=== PATIENT | male | born 1945 | race Caucasian/White ===

== ENCOUNTER 2017-07-29 09:33 | Emergency (ER) | payer MEDICARE, MEDICAID ==
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
[2017-07-29] MEDS ORDERED: Sodium Chloride 0.9% 10 ML Syringe FLUSH PRN (10:50)
[2017-07-29] MEDS ORDERED: Sodium Chloride 0.9% 1,000 ML IV ONE (10:58)
[2017-07-29 11:02] VITALS: BP 107/59
--- NOTE | 2017-07-29 11:26 | CR ---
Clinical history: 71-year-old male with abdominal pain and "constipation". Significant history colon cancer surgery (hepatic flexure) and prostate cancer surgery in the past. Interpretation: Flat plate and left lateral decubitus films of the abdomen abnormal. *Generalized dilatation of the large and small intestine with differential air-fluid levels small bow el suggesting mechanical bowel obstruction. Adhesions? Recurrent tumor? Stool concentrated in the rec jocelyn. No foreign body or free intraperitoneal air. Lung bases clear.
[2017-07-29 11:27] LABS: CHLORIDE,CL 102 mmol/L (101-111); SODIUM,NA 134 mmol/L (135-145)
[2017-07-29] MEDS ORDERED: Iopamidol 612 MG/ML 75 ML Bottle IVPUSH ONE (11:32)
[2017-07-29] MEDS ORDERED: Midazolam 1 MG/ML 2 ML SDV IVPUSH ONE (11:34)
--- NOTE | 2017-07-29 12:53 | CT ---
Clinical history: 71-year-old 130 pound male with abdominal pain and plain film evidence of "small [place] wel obstruction" who has significant past history of "colon cancer surgery" (hepatic flexure). Scan technique: Volume acquisition of data from the abdomen and pelvis obtained during and after intr avenous infusion nonionic Isovue contrast (no oral contrast) while patient was lying supine on the [employer] multi slice scanner [place], [place]. All data archived in the [employer] system for storage, reformatting and study. Interpretation: Abnormal. 1. Surgical clips right upper quadrant consistent with resection ascending right colon and ileo-colo anastomosis. 2. *Acute stool impaction rectosigmoid colon with associated evidence of apparent proximal obstructio n i.e. dilatation of the remaining colon proximally and small intestine. No ascites or free intraperi toneal air. 3. Large hiatus hernia incarcerated in the lower middle mediastinum (no gastric dilatation). 4. No abnormal abdominal or pelvic mass lesion and no mesenteric or retroperitoneal lymphadenopathy. 5. Gallbladder, liver, spleen, pancreas and adrenal glands unremarkable. Normal reniform size, axis a nd configuration. 6. Extensive atheromatous calcifications normal caliber aortoiliac vessels. No aneurysm or dissection . Arthritis right hip. 7. Lung bases clear. Indwelling urinary catheter.
--- NOTE | 2017-07-29 13:11 | CR ---
Clinical history: 71-year-old male with severe rectal stool impaction and signs of mechanical small b owel obstruction. Midline NG tube follows normal course esophagus and is curled with tip lying in the fundus of the sto mach, LUQ. Normal cardiac silhouette. No signs of alveolar edema, dependent effusion, lung mass, focal lobar inf iltrate or atelectasis. No pneumothorax. No free subdiaphragmatic air. CONCLUSION: Satisfactory NG tube placement.
== END 2017-07-29 14:00 ==
LOC: DL.ED 09:33
DX: K56.691 Other complete intestinal obstruction (principal); Z96.0 Presence of urogenital implants; Z85.038 Personal history of other malignant neoplasm of large intestine; Z85.46 Personal history of malignant neoplasm of prostate; Z86.711 Personal history of pulmonary embolism; Z87.891 Personal history of nicotine dependence; Z88.0 Allergy status to penicillin; Z88.1 Allergy status to other antibiotic agents
CPT/HCPCS: 36415; 43752; 71045; 74021; 74177; 80053; 83605; 85025; 96361; 96374; 99285; J2250; J7030; J7050; Q9967

== ENCOUNTER 2017-08-12 08:49 | Emergency (ER) | payer MEDICARE, MEDICAID ==
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
[2017-08-12] MEDS ORDERED: Ondansetron 4 MG/2 ML SDV IV ONE (09:40)
[2017-08-12 09:48] LABS: CHLORIDE,CL 94 mmol/L (101-111); SODIUM,NA 131 mmol/L (135-145)
--- NOTE | 2017-08-12 09:52 | CT ---
Clinical history: 71-year-old male history of colon cancer surgery (hepatic flexure) complaining of a bdominal pain was reported on [address] exam to have "stool impaction rectosigmoid colon with proximal obstruction; large hiatus hernia incarcerated lower middle mediastinum". Scan technique: Volume acquisition of data emergency unenhanced CT scan abdomen and pelvis obtained w ith patient lying supine on the [employer] multi slice scanner [place], [place]. All data archived in the [employer] system for storage, reformatting axial/sagittal/coronal planes and study. Interpretation: Abnormal. 1. Huge rectal stool impaction (no relief since recent CT exam 29 July 2017). 2. *Abnormal dilatation of the remaining colon, proximally, the small intestine and stomach with diff erential air-fluid levels throughout small bowel typical of mechanical obstruction. (Ileo-colo anasto mosis RUQ) No sign of ventral wall hernia, colostomy or ileostomy. 3. Indwelling catheter urinary bladder. No abdominal or pelvic mass lesion, retroperitoneal lymphaden opathy, inflammatory "dirty" peritoneal fat, ascites or free intraperitoneal air. 4. Normal gallbladder, unenhanced liver, spleen, pancreas, adrenal glands and kidneys. 5. Large fluid-filled hiatus hernia incarcerated in the lower middle mediastinum. 6. Densely calcified cast normal caliber aortoiliac vessels. No aneurysm or dissection.
[2017-08-12 10:40] VITALS: BP 129/83
== END 2017-08-12 11:00 ==
LOC: DL.ED 08:49
DX: K56.609 Unspecified intestinal obstruction, unspecified as to partial versus complete obstruction (principal); Z85.46 Personal history of malignant neoplasm of prostate; Z85.038 Personal history of other malignant neoplasm of large intestine; K21.9 Gastro-esophageal reflux disease without esophagitis; Z79.01 Long term (current) use of anticoagulants; Z87.891 Personal history of nicotine dependence; Z79.899 Other long term (current) drug therapy; Z88.0 Allergy status to penicillin; Z88.1 Allergy status to other antibiotic agents
CPT/HCPCS: 36415; 43752; 74176; 80053; 85025; 96374; 99285; J2405

== ENCOUNTER 2017-12-18 12:34 | Observation (INO) | payer MEDICARE, MEDICAID ==
[2017-12-18] MEDS: Sodium Chloride 0.9% 10 ML Syringe FLUSH PRN ×2 (13:34→19:44)
[2017-12-18 13:57] LABS: CHLORIDE,CL 94 mmol/L (101-111); SODIUM,NA 133 mmol/L (135-145)
[2017-12-18] MEDS ORDERED: Iopamidol 612 MG/ML 75 ML Bottle IVPUSH ONE (14:05)
[2017-12-18] MEDS ORDERED: Sodium Chloride 0.9% 1,000 ML IV ONE (18:47)
[2017-12-18] MEDS ORDERED: Acetaminophen 650 MG Supp RECTAL PRN (20:28)
[2017-12-18] MEDS ORDERED: Morphine 2 MG/ML Syringe IVPUSH PRN (20:28)
[2017-12-18] MEDS ORDERED: Ketorolac 30 MG/ML SDV IM PRN (20:28)
[2017-12-18] MEDS ORDERED: Sodium Chloride 0.9% 10 ML Syringe FLUSH PRN (20:28)
[2017-12-18] MEDS ORDERED: Ondansetron 4 MG/2 ML SDV IVPUSH PRN (20:28)
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
[2017-12-18] MEDS: Ciprofloxacin in D5W 400 MG in Premix Bag 1 BAG IV SCH ×2 (21:06)
[2017-12-18] MEDS: Benzocaine/Docusate Sodium 20-283 MG/5 ML Enema RECTAL SCH (21:55)
[2017-12-18] MEDS: Dextrose 5%-0.9% NaCl 1,000 ML IV SCH (22:45)
[2017-12-19 07:19] LABS: CHLORIDE,CL 96 mmol/L (101-111); SODIUM,NA 131 mmol/L (135-145)
[2017-12-19] MEDS: Ciprofloxacin in D5W 400 MG in Premix Bag 1 BAG IV SCH ×2 (08:47)
[2017-12-19] MEDS: Enoxaparin 100 MG/1 ML Syringe SUBCUT SCH (08:47)
[2017-12-19] MEDS: Benzocaine/Docusate Sodium 20-283 MG/5 ML Enema RECTAL SCH ×2 (09:37→21:02)
[2017-12-19] MEDS: Dextrose 5%-0.9% NaCl 1,000 ML IV SCH (10:14)
[2017-12-19] MEDS ORDERED: Polyethylene Glycol 3350 Powder 17 GM Packet PO ONE (10:50)
[2017-12-19] MEDS ORDERED: Magnesium Citrate Solution 296 ML Bottle PO ONE ×2 (10:50→11:30)
--- NOTE | 2017-12-19 11:06 | PCM.PN ---
- General Info Date of Service: 12/19/17 Admission Dx/Problem (Free Text): Admission Diagnosis/Problem Admission Diagnosis/Problem Intestinal obstruction Subjective Update: Patient admitted yesterday with n/v/abd pain. Being managed for intestinal obstruction. NG tube passed to decompress bowel. Doing well today. Will give trial of clear fluids, clamp NG tube. - Review of Systems General: Reports: No Symptoms HEENT: Reports: No Symptoms Pulmonary: Reports: No Symptoms Cardiovascular: Reports: No Symptoms Gastrointestinal: Reports: No Symptoms Genitourinary: Reports: No Symptoms Musculoskeletal: Reports: No Symptoms Skin: Reports: No Symptoms - Patient Data Vitals - Most Recent: Last Vital Signs Temp 36.9 C 12/19/17 07:56 Pulse 71 12/19/17 07:56 Resp 20 12/19/17 07:56 BP 114/73 12/19/17 07:56 Pulse Ox 94 L 12/19/17 07:56 Weight - Most Recent: 66.224 kg I&O - Last 24 Hours: Intake & Output 12/18/17 12/19/17 12/19/17 22:59 06:59 14:59 Intake Total 425 573 Output Total 350 550 Balance 75 23 Lab Results Last 24 Hours: Laboratory Results - last 24 hr 12/18/17 12/18/17 12/18/17 Range/Units 13:33 13:33 13:39 WBC 10.8 H (5.0-10.0) 10^3/uL RBC 4.12 L (4.6-6.2) 10^6/uL Hgb 13.4 L (14.0-18.0) g/dL Hct 39.8 L (40.0-54.0) % MCV 96.6 (80-100) fL MCH 32.5 (27.0-34.0) pg MCHC 33.7 (33.0-35.0) g/dL Plt Count 344 D (150-450) 10^3/uL Neut % (Auto) 66.9 (42.2-75.2) % Lymph % (Auto) 21.0 (20.5-50.1) % [place] % (Auto) 10.8 H (2-8) % Eos % (Auto) 1.0 (1.0-3.0) % Baso % (Auto) 0.3 (0.0-1.0) % Sodium 133 L (135-145) mmol/L Potassium 4.1 (3.6-5.0) mmol/L Chloride 94 L (101-111) mmol/L Carbon Dioxide 33.0 H (21.0-31.0) mmol/L Anion Gap 10.1 BUN 19 H (7-18) mg/dL Creatinine 0.9 (0.6-1.3) mg/dL Est Cr Clr Drug Dosing 68.47 mL/min Estimated GFR (MDRD) > 60 BUN/Creatinine Ratio 21.11 Glucose 115 H (74-105) mg/dL Calcium 9.6 (8.4-10.2) mg/dl Phosphorus (2.5-4.6) mg/dL Magnesium (1.8-2.5) mg/dL Total Bilirubin 0.7 (0.2-1.0) mg/dL Direct Bilirubin (0.0-0.2) mg/dL Indirect Bilirubin AST 33 (10-42) IU/L ALT 23 (10-60) IU/L Alkaline Phosphatase 123 H (42-121) IU/L Total Protein 7.4 (6.7-8.2) g/dl Albumin 3.7 (3.2-5.5) g/dl Globulin 3.7 Albumin/Globulin Ratio 1.00 Urine Color Yellow (YELLOW) Urine Appearance Turbid (CLEAR) Urine pH 7.0 (5.0-9.0) Ur Specific [place] 1.020 (1.005-1.030) Urine Protein 100 H (NEGATIVE) Urine Glucose (UA) Negative (NEGATIVE) Urine Ketones Negative (NEGATIVE) Urine Occult Blood Moderate H (NEGATIVE) Urine Nitrite Positive H (NEGATIVE) Urine Bilirubin Small H (NEGATIVE) Urine Urobilinogen 1.0 (0.2-1.0) mg/dL Ur Leukocyte Esterase Large H (NEGATIVE) Urine RBC 30-40 H /HPF Urine WBC 50-75 H (0-5/HPF) /HPF Ur Epithelial Cells Rare /HPF Triple Phos Crystals Moderate H /HPF Amorphous Sediment Few (0/HPF) /HPF Urine Bacteria Many H (0-FEW/HPF) /HPF Urine Other 12/19/17 12/19/17 Range/Units 06:25 06:25 WBC 9.0 (5.0-10.0) 10^3/uL RBC 3.69 L (4.6-6.2) 10^6/uL Hgb 12.2 L (14.0-18.0) g/dL Hct 35.9 L (40.0-54.0) % MCV 97.3 (80-100) fL MCH 33.1 (27.0-34.0) pg MCHC 34.0 (33.0-35.0) g/dL Plt Count 344 (150-450) 10^3/uL Neut % (Auto) 59.2 (42.2-75.2) % Lymph % (Auto) 26.0 (20.5-50.1) % [place] % (Auto) 11.5 H (2-8) % Eos % (Auto) 3.0 (1.0-3.0) % Baso % (Auto) 0.3 (0.0-1.0) % Sodium 131 L (135-145) mmol/L Potassium 3.1 L (3.6-5.0) mmol/L Chloride 96 L (101-111) mmol/L Carbon Dioxide 29.0 (21.0-31.0) mmol/L Anion Gap 9.1 BUN 17 (7-18) mg/dL Creatinine 0.6 (0.6-1.3) mg/dL Est Cr Clr Drug Dosing 102.71 mL/min Estimated GFR (MDRD) > 60 BUN/Creatinine Ratio Glucose 122 H (74-105) mg/dL Calcium 8.5 (8.4-10.2) mg/dl Phosphorus 2.4 L (2.5-4.6) mg/dL Magnesium 2.0 (1.8-2.5) mg/dL Total Bilirubin 0.5 (0.2-1.0) mg/dL Direct Bilirubin 0.1 (0.0-0.2) mg/dL Indirect Bilirubin 0.4 AST 22 (10-42) IU/L ALT 17 (10-60) IU/L Alkaline Phosphatase 102 (42-121) IU/L Total Protein 6.1 L (6.7-8.2) g/dl Albumin 3.1 L (3.2-5.5) g/dl Globulin 3.0 Albumin/Globulin Ratio 1.03 Urine Color (YELLOW) Urine Appearance (CLEAR) Urine pH (5.0-9.0) Ur Specific [place] (1.005-1.030) Urine Protein (NEGATIVE) Urine Glucose (UA) (NEGATIVE) Urine Ketones (NEGATIVE) Urine Occult Blood (NEGATIVE) Urine Nitrite (NEGATIVE) Urine Bilirubin (NEGATIVE) Urine Urobilinogen (0.2-1.0) mg/dL Ur Leukocyte Esterase (NEGATIVE) Urine RBC /HPF Urine WBC (0-5/HPF) /HPF Ur Epithelial Cells /HPF Triple Phos Crystals /HPF Amorphous Sediment (0/HPF) /HPF Urine Bacteria (0-FEW/HPF) /HPF Urine Other Med Orders - Current: Current Medications Acetaminophen (Tylenol) 650 mg RECTAL Q4H PRN PRN Reason: Pain (mild 1-3) Docusate Sodium/Benzocaine (Enemeez Plus Mini Enema) 1 each RECTAL BID [facility] Stop: 12/19/17 21:01 Last Admin: 12/19/17 09:37 Dose: 1 each Enoxaparin Sodium (Lovenox) 100 mg SUBCUT DAILY [facility] Last Admin: 12/19/17 08:47 Dose: 100 mg Dextrose/Sodium Chloride (Dextrose 5%-Normal Saline) 1,000 mls @ 100 mls/hr IV ASDIRECTED [facility] Last Admin: 12/19/17 10:14 Dose: 100 mls/hr Ciprofloxacin/Dextrose 400 mg/ (Premix) 200 mls @ 200 mls/hr IV Q12HR [facility] Stop: 12/23/17 21:01 Last Admin: 12/19/17 08:47 Dose: 200 mls/hr Ketorolac Tromethamine (Toradol) 30 mg IM Q6H PRN PRN Reason: Pain (moderate 4-6) Morphine Sulfate (Morphine) 2 mg IVPUSH Q2H PRN PRN Reason: Pain (severe 7-10) Ondansetron HCl (Zofran) 4 mg IVPUSH Q4H PRN PRN Reason: Nausea/Vomiting Sodium Chloride (Saline Flush) 10 ml FLUSH ASDIRECTED PRN PRN Reason: Keep Vein Open Last Admin: 12/18/17 19:44 Dose: 10 ml Sodium Chloride (Saline Flush) 10 ml FLUSH ASDIRECTED PRN PRN Reason: Keep Vein Open Discontinued Medications Sodium Chloride (Normal Saline) 1,000 mls @ 100 mls/hr IV .BOLUS ONE Stop: 12/19/17 04:46 Last Admin: 12/18/17 19:44 Dose: 100 mls/hr Iopamidol (Isovue-300 (61%)) 75 ml IVPUSH ONETIME ONE Stop: 12/18/17 14:06 Last Admin: 12/18/17 14:31 Dose: 75 ml Magnesium Citrate (Citrate Of Magnesia) 300 ml PO ONETIME ONE Stop: 12/19/17 10:51 Polyethylene Glycol (Miralax) 17 gm PO ONETIME ONE Stop: 12/19/17 10:51 - Exam General: Alert, Oriented HEENT: Pupils Equal Neck: Supple Lungs: Clear to Auscultation Cardiovascular: Regular Rate, Regular Rhythm GI/Abdominal Exam: Normal Bowel Sounds - Problem List Review Problem List Initiated/Reviewed/Updated: Yes - My Orders Last 24 Hours: My Active Orders 12/18/17 13:39 CULTURE URINE [RM] Stat 12/18/17 20:28 Patient Status [ADT] Routine Ambulate [RC] ASDIRECTED Height and Weight [RC] 0600 Oxygen Therapy [RC] PRN Up With Assistance [RC] ASDIRECTED Up to Chair [RC] ASDIRECTED Urinary Catheter Assessment [RC] QSHIFT VTE/DVT Education [RC] PER UNIT ROUTINE Vital Signs [RC] 04,08,12,16,20,00 Acetaminophen [Tylenol] 650 mg RECTAL Q4H PRN Ketorolac [Toradol] 30 mg IM Q6H PRN Morphine 2 mg IVPUSH Q2H PRN Ondansetron [Zofran] 4 mg IVPUSH Q4H PRN Sodium Chloride 0.9% [Saline Flush] 10 ml FLUSH ASDIRECTED PRN Blood Culture x2 Reflex Set [OM.PC] Stat Saline Lock Insert [OM.PC] Routine Resuscitation Status Routine 12/18/17 20:30 Intake and Output [RC] QSHIFT 12/18/17 20:40 OT Evaluation and Treatment [CONS] Routine PT Evaluation and Treatment [CONS] Routine 12/18/17 20:43 CULTURE BLOOD [BC] Stat CULTURE BLOOD [BC] Stat 12/18/17 20:45 Dextrose 5%-0.9% NaCl [Dextrose 5%-Normal Saline] 1,000 ml IV ASDIRECTED 12/18/17 21:00 Benzocaine/Docusate Sodium [Enemeez Plus Mini Enema] 1 each RECTAL BID Ciprofloxacin in D5W [Cipro in D5W 400 MG/200 ML] 400 mg Premix Bag 1 bag IV Q12HR 12/18/17 Dinner Nothing per Oral Now Diet [DIET] 12/19/17 09:00 Enoxaparin [Lovenox] 100 mg SUBCUT DAILY 12/19/17 10:12 Communication Order [RC] 1400 12/19/17 10:49 Enema [RC] ASDIRECTED 12/19/17 Lunch Clear Liquid Diet [DIET] - Plan Plan:: The patient is a 72-year-old male with a past medical history of metastatic colon cancer involving the liver, stage III a prostate cancer, DVT on anticoagulation, who presents with constipation, abdominal cramps, nausea and vomiting. #Intestinal obstruction CT scan shows dilated loops of bowel, air-fluid levels, and stool impaction in the rectosigmoid. Nothing by mouth Clamp NG tube, trial of clear liquids. Trial of enema, miralax, mag citrate IV fluids: 5% dextrose + normal saline at 100 mL an hour #Urinary tract infection possible, patient with chronic Valdez Check urine cultures, blood culture IV Ciprofloxacin 400 mg every 12 hours #History of DVT Continue therapeutic Lovenox
[2017-12-19] MEDS: Ciprofloxacin 500 MG Tab PO SCH (21:02)
[2017-12-20 07:53] VITALS: BP 111/68
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
[2017-12-20] MEDS: Enoxaparin 100 MG/1 ML Syringe SUBCUT SCH (08:41)
[2017-12-20] MEDS: Ciprofloxacin 500 MG Tab PO SCH (08:41)
--- NOTE | 2017-12-20 10:18 | PCM.DCSUM1 ---
Discharge Summary - Hospital Course Free Text/Narrative:: 72-year-old male with a past medical history of metastatic colon cancer status post hemicolectomy, prostate cancer with chronic Valdez who was admitted with intestinal obstruction secondary to a fecal impaction. NG tube was placed, he received several enemas and bowel movements. Abdominal pain, nausea and vomiting improved, NG tube was removed, he tolerated oral meals was okay for discharge today. 3 days of antibiotics were given for possible UTI. Valdez catheter was changed. He will follow-up with Dr. Solares in the oncology clinic and with his primary care doctor. - Discharge Data Discharge Date: 12/20/17 Discharge Disposition: Home, Self-Care 01 Condition: Good - Patient Instructions Diet: Regular Diet as Tolerated Activity: As Tolerated Driving: May Drive Today Showering/Bathing: May Shower - Discharge Plan Home Medications: Home Meds Calcium Carbonate/Vitamin D3 [Calcium 600-Vit D3 400 Tablet] 1 each PO BID 05/15 [History] Capecitabine 1,000 mg PO BID 07/29/17 [History] Acetaminophen [Tylenol] 2 tab PO ASDIRECTED PRN 08/12/17 [History] Enoxaparin [Lovenox] 1 ml SQ DAILY 08/12/17 [History] Loperamide [Imodium] 1 tab PO ASDIRECTED PRN 08/12/17 [History] Magnesium Hydroxide [Milk of Magnesia] 30 ml PO DAILY PRN 08/12/17 [History] Ondansetron [Zofran] 1 tab PO ASDIRECTED PRN 08/12/17 [History] Prochlorperazine Maleate [Compazine] 1 tab PO ASDIRECTED PRN 08/12/17 [History] Sennosides/Docusate Sodium [Senna-S Tablet] 2 tab PO BID 08/12/17 [History] Sodium Phosphate,[place]-Dibasic [Enema Ready To Use] 133 ml RECTAL DAILY PRN 08/12 [History] Patient Handouts: Constipation, Adult, [id number], Fiber Content in Foods Forms: ED Department Discharge - General Info Admission Dx/Problem (Free Text: Admission Diagnosis/Problem Admission Diagnosis/Problem Intestinal obstruction Subjective Update: Patient admitted yesterday with n/v/abd pain. Being managed for intestinal obstruction. NG tube removed yesterday Doing well today. - Review of Systems General: Reports: No Symptoms HEENT: Reports: No Symptoms Pulmonary: Reports: No Symptoms Cardiovascular: Reports: No Symptoms Gastrointestinal: Reports: No Symptoms Genitourinary: Reports: No Symptoms - Patient Data Vitals - Most Recent: Last Vital Signs Temp 37.1 C 12/20/17 07:53 Pulse 71 12/20/17 07:53 Resp 20 12/20/17 07:53 BP 111/68 12/20/17 07:53 Pulse Ox 95 12/20/17 07:53 Weight - Most Recent: 66.224 kg I&O - Last 24 hours: Intake & Output 12/19/17 12/20/17 12/20/17 22:59 06:59 14:59 Intake Total 240 Output Total 300 Balance -300 240 SERGE Results - Last 24 hrs: Microbiology 12/18/17 20:43 Aerobic Blood Culture - Preliminary Blood - Venous - Lab Draw NO GROWTH AFTER 1 DAY Anaerobic Blood Culture - Preliminary NO GROWTH AFTER 1 DAY 12/18/17 20:43 Aerobic Blood Culture - Preliminary Blood - Venous NO GROWTH AFTER 1 DAY Anaerobic Blood Culture - Preliminary NO GROWTH AFTER 1 DAY Med Orders - Current: Current Medications Acetaminophen (Tylenol) 650 mg RECTAL Q4H PRN PRN Reason: Pain (mild 1-3) Ciprofloxacin (Ciprofloxacin Hcl) 500 mg PO BID [facility] Last Admin: 12/20/17 08:41 Dose: 500 mg Enoxaparin Sodium (Lovenox) 100 mg SUBCUT DAILY [facility] Last Admin: 12/20/17 08:41 Dose: 100 mg Ketorolac Tromethamine (Toradol) 30 mg IM Q6H PRN PRN Reason: Pain (moderate 4-6) Sodium Chloride (Saline Flush) 10 ml FLUSH ASDIRECTED PRN PRN Reason: Keep Vein Open Discontinued Medications Docusate Sodium/Benzocaine (Enemeez Plus Mini Enema) 1 each RECTAL BID [facility] Stop: 12/19/17 21:01 Last Admin: 12/19/17 21:02 Dose: 1 each Sodium Chloride (Normal Saline) 1,000 mls @ 100 mls/hr IV .BOLUS ONE Stop: 12/19/17 04:46 Last Admin: 12/18/17 19:44 Dose: 100 mls/hr Dextrose/Sodium Chloride (Dextrose 5%-Normal Saline) 1,000 mls @ 100 mls/hr IV ASDIRECTED [facility] Last Admin: 12/19/17 10:14 Dose: 100 mls/hr Ciprofloxacin/Dextrose 400 mg/ (Premix) 200 mls @ 200 mls/hr IV Q12HR [facility] Stop: 12/23/17 21:01 Last Admin: 12/19/17 08:47 Dose: 200 mls/hr Iopamidol (Isovue-300 (61%)) 75 ml IVPUSH ONETIME ONE Stop: 12/18/17 14:06 Last Admin: 12/18/17 14:31 Dose: 75 ml Magnesium Citrate (Citrate Of Magnesia) 300 ml PO ONETIME ONE Stop: 12/19/17 10:51 Last Admin: 12/19/17 11:58 Dose: Not Given Magnesium Citrate (Citrate Of Magnesia) 296 ml PO ONETIME ONE Stop: 12/19/17 11:31 Last Admin: 12/19/17 11:40 Dose: 296 ml Morphine Sulfate (Morphine) 2 mg IVPUSH Q2H PRN PRN Reason: Pain (severe 7-10) Ondansetron HCl (Zofran) 4 mg IVPUSH Q4H PRN PRN Reason: Nausea/Vomiting Last Admin: 12/19/17 15:48 Dose: 4 mg Polyethylene Glycol (Miralax) 17 gm PO ONETIME ONE Stop: 12/19/17 10:51 Last Admin: 12/19/17 12:01 Dose: 17 gm Sodium Chloride (Saline Flush) 10 ml FLUSH ASDIRECTED PRN PRN Reason: Keep Vein Open Last Admin: 12/18/17 19:44 Dose: 10 ml - Exam General: Reports: Alert, Oriented HEENT: Reports: Pupils Equal, Pupils Reactive Lungs: Reports: Clear to Auscultation Cardiovascular: Reports: Regular Rate, Regular Rhythm GI/Abdominal Exam: Normal Bowel Sounds, Soft, No Distention
== END 2017-12-20 11:43 | disposition home or self-care (01) ==
LOC: DL.ED 12:34 → DL.MS 19:31 → UNDOADMOB 19:31 → DL.MS 20:28
PROVIDERS: ADMIT Hospitalist; ATTEND Hospitalist
DX: K56.41 Fecal impaction (principal); C78.7 Secondary malignant neoplasm of liver and intrahepatic bile duct; K21.9 Gastro-esophageal reflux disease without esophagitis; N40.1 Benign prostatic hyperplasia with lower urinary tract symptoms; R33.8 Other retention of urine; Z86.73 Personal history of transient ischemic attack (TIA), and cerebral infarction without residual deficits; Z90.49 Acquired absence of other specified parts of digestive tract; Z85.038 Personal history of other malignant neoplasm of large intestine; Z85.46 Personal history of malignant neoplasm of prostate; Z79.899 Other long term (current) drug therapy; Z79.01 Long term (current) use of anticoagulants; Z88.1 Allergy status to other antibiotic agents; Z88.0 Allergy status to penicillin; Z86.711 Personal history of pulmonary embolism; Z86.718 Personal history of other venous thrombosis and embolism
CPT/HCPCS: 36415; 74177; 80048; 80053; 80076; 81001; 83735; 84100; 85025; 87040; 87086; 87186; 96361; 96365; 96366; 96372; 96375; 99284; A9270; G0378; J0744; J1650; J2405; J7030; J7042; J7050; Q9967

== ENCOUNTER 2017-12-21 03:41 | Emergency (ER) | payer MEDICARE, MEDICAID ==
[2017-12-21 03:46] VITALS: BP 138/72
[2017-12-21] MEDS ORDERED: Sodium Chloride 0.9% 1,000 ML IV ONE (03:50)
[2017-12-21] MEDS ORDERED: Iopamidol 612 MG/ML 75 ML Bottle IVPUSH ONE (03:50)
[2017-12-21 04:32] LABS: CHLORIDE,CL 95 mmol/L (101-111); SODIUM,NA 134 mmol/L (135-145)
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
== END 2017-12-21 06:09 ==
LOC: DL.ED 03:41
DX: K56.609 Unspecified intestinal obstruction, unspecified as to partial versus complete obstruction (principal); Z85.46 Personal history of malignant neoplasm of prostate; Z85.038 Personal history of other malignant neoplasm of large intestine; Z88.0 Allergy status to penicillin; Z88.1 Allergy status to other antibiotic agents; Z79.899 Other long term (current) drug therapy; Z79.01 Long term (current) use of anticoagulants
CPT/HCPCS: 36415; 71045; 74177; 80053; 81001; 82150; 82272; 83605; 83690; 84484; 85025; 87040; 96360; 96361; 99284; J7030; Q9967; 99285

== ENCOUNTER 2017-12-24 17:26 | Observation (INO) | payer MEDICARE, MEDICAID ==
[2017-12-24] MEDS ORDERED: Sodium Chloride 0.9% 10 ML Syringe FLUSH PRN (17:52)
[2017-12-24] MEDS ORDERED: Sodium Chloride 0.9% 1,000 ML IV SCH (18:00)
[2017-12-24 18:38] LABS: CHLORIDE,CL 102 mmol/L (101-111); SODIUM,NA 132 mmol/L (135-145)
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
[2017-12-24] MEDS ORDERED: Levofloxacin/Dextrose 5%-Water 500 MG in Premix Bag 1 BAG IV ONE (19:05)
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
[2017-12-24] MEDS ORDERED: SODIUM PHOSPHATE MONO DIBASIC RECTAL PRN (20:36)
[2017-12-24] MEDS ORDERED: Magnesium Hydroxide 400 MG/5 ML Susp 30 ML Cup PO PRN (20:36)
[2017-12-24] MEDS ORDERED: Prochlorperazine 5 MG Tab PO PRN (20:36)
[2017-12-24] MEDS ORDERED: Ondansetron 4 MG Tab.DIS PO PRN (20:36)
[2017-12-24] MEDS ORDERED: Acetaminophen 325 MG Tab PO PRN (20:36)
[2017-12-24] MEDS ORDERED: [UNRECOGNIZED DRUG - OTHER] RECTAL PRN (20:36)
[2017-12-24] MEDS: Calcium Carbonate/Vitamin D3 1250 MG-200 Unit Tab PO SCH (21:33)
[2017-12-25 06:54] LABS: CHLORIDE,CL 104 mmol/L (101-111); SODIUM,NA 131 mmol/L (135-145)
[2017-12-25] MEDS: Calcium Carbonate/Vitamin D3 1250 MG-200 Unit Tab PO SCH ×2 (09:38→21:48)
[2017-12-25] MEDS: XELODA 500 MG PO SCH ×2 (09:39→21:48)
[2017-12-25] MEDS: Enoxaparin 100 MG/1 ML Syringe SUBCUT SCH (09:40)
--- NOTE | 2017-12-25 10:21 | PCM.PN ---
- General Info Date of Service: 12/25/17 Admission Dx/Problem (Free Text): Ambulatory dysfunction Subjective Update: The patient is a 72-year-old male with a past medical history of metastatic colon cancer involving the liver, stage III a prostate cancer, DVT on anticoagulation, who presents with ambulatory dysfunction. He was recently admitted at [facility] with intestinal obstruction and upper GI bleed from esophagitis. Prior to discharge, he was eventually treated by physical therapy and TCU admission was recommended. Patient refused TCU admission and was discharged home with home health care, to be assisted by his . However his sustained a fracture and is unable to care for him. He has severe ambulatory difficulty and needs help with ADLs and IADLs. Determine inability to feed himself at home, take care of himself, toileting needs, he presents to ED. He has no other complaints today. There is no fever, no abdominal pain, no chest pain, no shortness of breath. - Review of Systems General: Reports: No Symptoms HEENT: Reports: No Symptoms Pulmonary: Reports: No Symptoms Cardiovascular: Reports: No Symptoms Gastrointestinal: Reports: No Symptoms Genitourinary: Reports: No Symptoms Musculoskeletal: Reports: No Symptoms Skin: Reports: No Symptoms - Patient Data Vitals - Most Recent: Last Vital Signs Temp 36.8 C 12/25/17 07:18 Pulse 74 12/25/17 07:18 Resp 20 12/25/17 07:18 BP 127/80 12/25/17 07:18 Pulse Ox 96 12/25/17 07:18 Weight - Most Recent: 60.963 kg I&O - Last 24 Hours: Intake & Output 12/24/17 12/25/17 12/25/17 22:59 06:59 14:59 Intake Total 100 1064 Output Total 875 Balance 100 189 Lab Results Last 24 Hours: Laboratory Results - last 24 hr 12/24/17 12/24/17 12/24/17 Range/Units 18:15 18:15 18:31 WBC 8.0 (5.0-10.0) 10^3/uL RBC 3.74 L (4.6-6.2) 10^6/uL Hgb 12.5 L (14.0-18.0) g/dL Hct 36.1 L (40.0-54.0) % MCV 96.5 (80-100) fL MCH 33.4 (27.0-34.0) pg MCHC 34.6 (33.0-35.0) g/dL Plt Count 393 (150-450) 10^3/uL Neut % (Auto) 60.2 (42.2-75.2) % Lymph % (Auto) 22.3 (20.5-50.1) % [place] % (Auto) 13.6 H (2-8) % Eos % (Auto) 3.3 H (1.0-3.0) % Baso % (Auto) 0.6 (0.0-1.0) % Sodium 132 L (135-145) mmol/L Potassium 3.9 (3.6-5.0) mmol/L Chloride 102 (101-111) mmol/L Carbon Dioxide 20.0 L D (21.0-31.0) mmol/L Anion Gap 13.9 BUN 10 (7-18) mg/dL Creatinine 0.7 (0.6-1.3) mg/dL Est Cr Clr Drug Dosing 85.62 mL/min Estimated GFR (MDRD) > 60 BUN/Creatinine Ratio 14.28 Glucose 93 (74-105) mg/dL Calcium 8.3 L (8.4-10.2) mg/dl Magnesium 2.3 (1.8-2.5) mg/dL Total Bilirubin 1.0 (0.2-1.0) mg/dL AST 34 (10-42) IU/L ALT 27 (10-60) IU/L Alkaline Phosphatase 146 H (42-121) IU/L Total Protein 6.4 L (6.7-8.2) g/dl Albumin 3.1 L (3.2-5.5) g/dl Globulin 3.3 Albumin/Globulin Ratio 0.94 Urine Color Yellow (YELLOW) Urine Appearance Cloudy (CLEAR) Urine pH 6.0 (5.0-9.0) Ur Specific [place] 1.020 (1.005-1.030) Urine Protein 30 H (NEGATIVE) Urine Glucose (UA) Negative (NEGATIVE) Urine Ketones >=160 H (NEGATIVE) Urine Occult Blood Moderate H (NEGATIVE) Urine Nitrite Positive H (NEGATIVE) Urine Bilirubin Moderate H (NEGATIVE) Urine Urobilinogen 1.0 (0.2-1.0) mg/dL Ur Leukocyte Esterase Moderate H (NEGATIVE) Urine RBC 5-10 H /HPF Urine WBC Packed H (0-5/HPF) /HPF Ur Epithelial Cells Occasional /HPF Urine Bacteria Many H (0-FEW/HPF) /HPF 12/25/17 12/25/17 Range/Units 06:00 06:00 WBC 7.7 (5.0-10.0) 10^3/uL RBC 3.58 L (4.6-6.2) 10^6/uL Hgb 11.7 L (14.0-18.0) g/dL Hct 34.6 L (40.0-54.0) % MCV 96.6 (80-100) fL MCH 32.7 (27.0-34.0) pg MCHC 33.8 (33.0-35.0) g/dL Plt Count 410 (150-450) 10^3/uL Neut % (Auto) 56.4 (42.2-75.2) % Lymph % (Auto) 25.7 (20.5-50.1) % [place] % (Auto) 13.2 H (2-8) % Eos % (Auto) 4.1 H (1.0-3.0) % Baso % (Auto) 0.6 (0.0-1.0) % Sodium 131 L (135-145) mmol/L Potassium 4.0 (3.6-5.0) mmol/L Chloride 104 (101-111) mmol/L Carbon Dioxide 20.0 L (21.0-31.0) mmol/L Anion Gap 11.0 BUN 10 (7-18) mg/dL Creatinine 0.5 L (0.6-1.3) mg/dL Est Cr Clr Drug Dosing 113.46 mL/min Estimated GFR (MDRD) > 60 BUN/Creatinine Ratio Glucose 75 (74-105) mg/dL Calcium 8.1 L (8.4-10.2) mg/dl Magnesium (1.8-2.5) mg/dL Total Bilirubin (0.2-1.0) mg/dL AST (10-42) IU/L ALT (10-60) IU/L Alkaline Phosphatase (42-121) IU/L Total Protein (6.7-8.2) g/dl Albumin (3.2-5.5) g/dl Globulin Albumin/Globulin Ratio Urine Color (YELLOW) Urine Appearance (CLEAR) Urine pH (5.0-9.0) Ur Specific [place] (1.005-1.030) Urine Protein (NEGATIVE) Urine Glucose (UA) (NEGATIVE) Urine Ketones (NEGATIVE) Urine Occult Blood (NEGATIVE) Urine Nitrite (NEGATIVE) Urine Bilirubin (NEGATIVE) Urine Urobilinogen (0.2-1.0) mg/dL Ur Leukocyte Esterase (NEGATIVE) Urine RBC /HPF Urine WBC (0-5/HPF) /HPF Ur Epithelial Cells /HPF Urine Bacteria (0-FEW/HPF) /HPF Med Orders - Current: Current Medications Acetaminophen (Tylenol) 650 mg PO Q4H PRN PRN Reason: Pain Calcium Carbonate (Calcium Carbonate/Vitamin D 1250 Mg-200 Unit) 1 tab PO BID [facility] Last Admin: 12/25/17 09:38 Dose: 1 tab Enoxaparin Sodium (Lovenox) 100 mg SUBCUT DAILY [facility] Last Admin: 12/25/17 09:40 Dose: 100 mg Sodium Chloride (Normal Saline) 1,000 mls @ 150 mls/hr IV ASDIRECTED [facility] Last Admin: 12/24/17 18:28 Dose: 150 mls/hr Magnesium Hydroxide (Milk Of Magnesia) 30 ml PO DAILY PRN PRN Reason: Constipation Xeloda 500 Mg Own (Med) 0 mg PO BID [facility] Last Admin: 12/25/17 09:39 Dose: 1,000 mg Non-Formulary Medication (Sodium Phosphate,[place]-Dibasic [Enema Ready To Use]) 133 ml RECTAL DAILY PRN PRN Reason: Constipation Ondansetron HCl (Zofran Odt) 8 mg PO Q8H PRN PRN Reason: Nausea Prochlorperazine Maleate (Compazine) 10 mg PO Q6H PRN PRN Reason: Nausea Senna/Docusate Sodium (Senna Plus) 2 tab PO BID [facility] Last Admin: 12/25/17 09:38 Dose: 2 tab Sodium Chloride (Saline Flush) 10 ml FLUSH ASDIRECTED PRN PRN Reason: Keep Vein Open Last Admin: 12/24/17 18:28 Dose: 10 ml Discontinued Medications Levofloxacin/Dextrose 500 mg/ (Premix) 100 mls @ 100 mls/hr IV ONETIME ONE Stop: 12/24/17 20:04 Last Admin: 12/24/17 19:16 Dose: 100 mls/hr - Exam General: Alert, Oriented HEENT: Pupils Equal Neck: Supple Lungs: Clear to Auscultation Cardiovascular: Regular Rate, Regular Rhythm GI/Abdominal Exam: Normal Bowel Sounds - Problem List Review Problem List Initiated/Reviewed/Updated: Yes - My Orders Last 24 Hours: My Active Orders 12/24/17 18:31 CULTURE URINE [RM] Stat 12/24/17 20:32 Patient Status [ADT] Routine Oxygen Therapy [RC] PRN Up With Assistance [RC] ASDIRECTED Up to Chair [RC] ASDIRECTED VTE/DVT Education [RC] PER UNIT ROUTINE Vital Signs [RC] Q4H OT Evaluation and Treatment [CONS] Routine PT Evaluation and Treatment [CONS] Routine Resuscitation Status Routine 12/24/17 20:36 Acetaminophen [Tylenol] 650 mg PO Q4H PRN Magnesium Hydroxide [Milk of Magnesia] 30 ml PO DAILY PRN Ondansetron [Zofran ODT] 8 mg PO Q8H PRN Prochlorperazine [Compazine] 10 mg PO Q6H PRN Sodium Phosphate,[place]-Dibasic [Enema Ready To Use] 133 ml RECTAL DAILY PRN 12/24/17 20:49 Urinary Catheter Assessment [RC] 08,20 Convert IV to Saline Lock [OM.PC] Routine 12/24/17 21:00 Valdez Catheter Insertion [Insert Urinary Catheter] [OM.PC] Q24H Calcium Carbonate/Vitamin D3 [Calcium Carbonate/Vitamin D 1250 MG-200 Unit] 1 tab PO BID Docusate Sodium/Sennosides [Senna Plus] 2 tab PO BID 12/24/17 Dinner Regular Diet [DIET] 12/25/17 09:00 Capecitabine [Capecitabine] 0 mg PO BID Enoxaparin [Lovenox] 100 mg SUBCUT DAILY 12/26/17 05:11 BASIC METABOLIC PANEL,BMP [CHEM] AM CBC WITH AUTO DIFF [HEME] AM 12/27/17 05:11 BASIC METABOLIC PANEL,BMP [CHEM] AM CBC WITH AUTO DIFF [HEME] AM 12/28/17 05:11 BASIC METABOLIC PANEL,BMP [CHEM] AM CBC WITH AUTO DIFF [HEME] AM 12/29/17 05:11 BASIC METABOLIC PANEL,BMP [CHEM] AM CBC WITH AUTO DIFF [HEME] AM - Plan Plan:: The patient is a 72-year-old male with a past medical history of metastatic colon cancer involving the liver, stage III a prostate cancer, DVT on anticoagulation, who presents with ambulatory dysfunction and failure to thrive. #Ambulatory dysfunction, failure to thrive PT/OT Will likely need skilled nursing placement #Mild hyponatremia Sodium 131 No headaches, no dizziness; asymptomatic hyponatremia Monitor BMP daily #Asymptomatic bacteriuria No fever, no elevated WBC count, no abdominal pain Urinalysis is positive for nitrites and leukocyte esterase; however the patient has a chronic Valdez catheter We'll hold off antibiotics for now. Check urine culture, trend CBC daily Monitor vital signs; if fever develops, will start antibiotics #History of colon cancer Continue oral chemotherapy Follow-up with the oncology clinic Ensure regular bowel movements, bowel regimen #History of DVT Continue chronic anticoagulation; Lovenox #CODE STATUS Full code Please note that patient was admitted on a Wednesday evening and will need placement in a skilled nursing; admission might be prolonged pending his disposition.
[2017-12-26 06:50] LABS: CHLORIDE,CL 102 mmol/L (101-111); SODIUM,NA 132 mmol/L (135-145)
[2017-12-26] MEDS: XELODA 500 MG PO SCH ×2 (09:19→21:28)
[2017-12-26] MEDS: Calcium Carbonate/Vitamin D3 1250 MG-200 Unit Tab PO SCH ×2 (09:20→21:27)
[2017-12-26] MEDS: Enoxaparin 100 MG/1 ML Syringe SUBCUT SCH (09:21)
--- NOTE | 2017-12-26 10:24 | PCM.PN ---
- General Info Date of Service: 12/26/17 Admission Dx/Problem (Free Text): Ambulatory dysfunction Subjective Update: The patient is a 72-year-old male with a past medical history of metastatic colon cancer involving the liver, stage III a prostate cancer, DVT on anticoagulation, who presents with ambulatory dysfunction. He was recently admitted at [facility] with intestinal obstruction and upper GI bleed from esophagitis. Prior to discharge, he was eventually treated by physical therapy and TCU admission was recommended. Patient refused TCU admission and was discharged home with home health care, to be assisted by his . However his sustained a fracture and is unable to care for him. He has severe ambulatory difficulty and needs help with ADLs and IADLs. Determine inability to feed himself at home, take care of himself, toileting needs, he presents to ED. He has no other complaints today. There is no fever, no abdominal pain, no chest pain, no shortness of breath. - Review of Systems General: Reports: No Symptoms HEENT: Reports: No Symptoms Pulmonary: Reports: No Symptoms Cardiovascular: Reports: No Symptoms Gastrointestinal: Reports: No Symptoms Genitourinary: Reports: No Symptoms Musculoskeletal: Reports: No Symptoms - Patient Data Vitals - Most Recent: Last Vital Signs Temp 36.9 C 12/26/17 07:49 Pulse 80 12/26/17 07:49 Resp 20 12/26/17 07:49 BP 133/83 12/26/17 07:49 Pulse Ox 96 12/26/17 07:49 Weight - Most Recent: 60.963 kg I&O - Last 24 Hours: Intake & Output 12/25/17 12/26/17 12/26/17 22:59 06:59 14:59 Intake Total 600 200 440 Output Total 325 500 Balance 275 -300 440 Lab Results Last 24 Hours: Laboratory Results - last 24 hr 12/26/17 12/26/17 Range/Units 05:45 05:45 WBC 7.6 (5.0-10.0) 10^3/uL RBC 3.70 L (4.6-6.2) 10^6/uL Hgb 12.3 L (14.0-18.0) g/dL Hct 35.5 L (40.0-54.0) % MCV 95.9 (80-100) fL MCH 33.2 (27.0-34.0) pg MCHC 34.6 (33.0-35.0) g/dL Plt Count 404 (150-450) 10^3/uL Neut % (Auto) 48.6 (42.2-75.2) % Lymph % (Auto) 31.9 (20.5-50.1) % [place] % (Auto) 14.8 H (2-8) % Eos % (Auto) 3.8 H (1.0-3.0) % Baso % (Auto) 0.9 (0.0-1.0) % Sodium 132 L (135-145) mmol/L Potassium 3.8 (3.6-5.0) mmol/L Chloride 102 (101-111) mmol/L Carbon Dioxide 22.0 (21.0-31.0) mmol/L Anion Gap 11.8 BUN 14 (7-18) mg/dL Creatinine 0.6 (0.6-1.3) mg/dL Est Cr Clr Drug Dosing 94.55 mL/min Estimated GFR (MDRD) > 60 Glucose 90 (74-105) mg/dL Calcium 9.2 (8.4-10.2) mg/dl Henri Results Last 24 Hours: Microbiology 12/24/17 18:31 Urine Culture - Preliminary Urine, Valdez Cath (Indwelling) Med Orders - Current: Current Medications Acetaminophen (Tylenol) 650 mg PO Q4H PRN PRN Reason: Pain Calcium Carbonate (Calcium Carbonate/Vitamin D 1250 Mg-200 Unit) 1 tab PO BID [facility] Last Admin: 12/26/17 09:20 Dose: 1 tab Enoxaparin Sodium (Lovenox) 100 mg SUBCUT DAILY [facility] Last Admin: 12/26/17 09:21 Dose: 100 mg Magnesium Hydroxide (Milk Of Magnesia) 30 ml PO DAILY PRN PRN Reason: Constipation Xeloda 500 Mg Own (Med) 0 mg PO BID [facility] Last Admin: 12/26/17 09:19 Dose: 1,000 mg Ondansetron HCl (Zofran Odt) 8 mg PO Q8H PRN PRN Reason: Nausea Prochlorperazine Maleate (Compazine) 10 mg PO Q6H PRN PRN Reason: Nausea Senna/Docusate Sodium (Senna Plus) 2 tab PO BID [facility] Last Admin: 12/26/17 09:20 Dose: 2 tab Sodium Chloride (Saline Flush) 10 ml FLUSH ASDIRECTED PRN PRN Reason: Keep Vein Open Last Admin: 12/24/17 18:28 Dose: 10 ml Discontinued Medications Sodium Chloride (Normal Saline) 1,000 mls @ 150 mls/hr IV ASDIRECTED [facility] Last Admin: 12/24/17 18:28 Dose: 150 mls/hr Levofloxacin/Dextrose 500 mg/ (Premix) 100 mls @ 100 mls/hr IV ONETIME ONE Stop: 12/24/17 20:04 Last Admin: 12/24/17 19:16 Dose: 100 mls/hr Non-Formulary Medication (Sodium Phosphate,[place]-Dibasic [Enema Ready To Use]) 133 ml RECTAL DAILY PRN PRN Reason: Constipation - Exam General: Alert HEENT: Pupils Equal Neck: Supple Lungs: Clear to Auscultation Cardiovascular: Regular Rate, Regular Rhythm GI/Abdominal Exam: Normal Bowel Sounds - Problem List Review Problem List Initiated/Reviewed/Updated: Yes - My Orders Last 24 Hours: My Active Orders 12/27/17 05:11 BASIC METABOLIC PANEL,BMP [CHEM] AM CBC WITH AUTO DIFF [HEME] AM 12/28/17 05:11 BASIC METABOLIC PANEL,BMP [CHEM] AM CBC WITH AUTO DIFF [HEME] AM 12/29/17 05:11 BASIC METABOLIC PANEL,BMP [CHEM] AM CBC WITH AUTO DIFF [HEME] AM - Plan Plan:: The patient is a 72-year-old male with a past medical history of metastatic colon cancer involving the liver, stage III a prostate cancer, DVT on anticoagulation, who presents with ambulatory dysfunction and failure to thrive. #Ambulatory dysfunction, failure to thrive PT/OT Will likely need [facility] placement #Mild hyponatremia Sodium 132 No headaches, no dizziness; asymptomatic hyponatremia Monitor BMP daily #Asymptomatic bacteriuria No fever, no elevated WBC count, no abdominal pain Urinalysis is positive for nitrites and leukocyte esterase; however the patient has a chronic Valdez catheter We'll hold off antibiotics for now. Urine culture - CONS #History of colon cancer Continue oral chemotherapy Follow-up with the oncology clinic Ensure regular bowel movements, bowel regimen #History of DVT Continue chronic anticoagulation; Lovenox #CODE STATUS Full code Please note that patient was admitted on a Wednesday evening and will need placement in a [facility]; admission might be prolonged pending his disposition.
[2017-12-27 06:54] LABS: CHLORIDE,CL 100 mmol/L (101-111); SODIUM,NA 131 mmol/L (135-145)
--- NOTE | 2017-12-27 09:14 | PCM.PN ---
- General Info Date of Service: 12/27/17 Admission Dx/Problem (Free Text): Ambulatory dysfunction Subjective Update: The patient is a 72-year-old male with a past medical history of metastatic colon cancer involving the liver, stage III a prostate cancer, DVT on anticoagulation, who presents with ambulatory dysfunction. He was recently admitted at [facility] with intestinal obstruction and upper GI bleed from esophagitis. Prior to discharge, he was eventually treated by physical therapy and TCU admission was recommended. Patient refused TCU admission and was discharged home with home health care, to be assisted by his . However his sustained a fracture and is unable to care for him. He has severe ambulatory difficulty and needs help with ADLs and IADLs. Determine inability to feed himself at home, take care of himself, toileting needs, he presents to ED. He has no other complaints today. There is no fever, no abdominal pain, no chest pain, no shortness of breath. Had a BM this morning. - Review of Systems General: Reports: No Symptoms HEENT: Reports: No Symptoms Pulmonary: Reports: No Symptoms Cardiovascular: Reports: No Symptoms Gastrointestinal: Reports: No Symptoms Genitourinary: Reports: Other (chronic Valdez catheter) Musculoskeletal: Reports: No Symptoms - Patient Data Vitals - Most Recent: Last Vital Signs Temp 36.8 C 12/27/17 07:55 Pulse 89 12/27/17 05:00 Resp 18 12/27/17 07:55 BP 110/78 12/27/17 07:55 Pulse Ox 94 L 12/27/17 05:00 Weight - Most Recent: 60.963 kg I&O - Last 24 Hours: Intake & Output 12/26/17 12/27/17 12/27/17 22:59 06:59 14:59 Intake Total 240 30 Output Total 1000 Balance 240 -970 Lab Results Last 24 Hours: Laboratory Results - last 24 hr 12/27/17 12/27/17 Range/Units 05:57 05:57 WBC 7.5 (5.0-10.0) 10^3/uL RBC 4.00 L (4.6-6.2) 10^6/uL Hgb 13.0 L (14.0-18.0) g/dL Hct 38.1 L (40.0-54.0) % MCV 95.3 (80-100) fL MCH 32.5 (27.0-34.0) pg MCHC 34.1 (33.0-35.0) g/dL Plt Count 357 (150-450) 10^3/uL Neut % (Auto) 53.6 (42.2-75.2) % Lymph % (Auto) 26.3 (20.5-50.1) % [place] % (Auto) 16.1 H (2-8) % Eos % (Auto) 3.3 H (1.0-3.0) % Baso % (Auto) 0.7 (0.0-1.0) % Sodium 131 L (135-145) mmol/L Potassium 3.9 (3.6-5.0) mmol/L Chloride 100 L (101-111) mmol/L Carbon Dioxide 24.0 (21.0-31.0) mmol/L Anion Gap 10.9 BUN 12 (7-18) mg/dL Creatinine 0.6 (0.6-1.3) mg/dL Est Cr Clr Drug Dosing 94.55 mL/min Estimated GFR (MDRD) > 60 Glucose 92 (74-105) mg/dL Calcium 9.5 (8.4-10.2) mg/dl Henri Results Last 24 Hours: Microbiology 12/24/17 18:31 Urine Culture - Final Urine, Valdez Cath (Indwelling) Med Orders - Current: Current Medications Acetaminophen (Tylenol) 650 mg PO Q4H PRN PRN Reason: Pain Calcium Carbonate (Calcium Carbonate/Vitamin D 1250 Mg-200 Unit) 1 tab PO BID [facility] Last Admin: 12/26/17 21:27 Dose: 1 tab Enoxaparin Sodium (Lovenox) 100 mg SUBCUT DAILY [facility] Last Admin: 12/26/17 09:21 Dose: 100 mg Magnesium Hydroxide (Milk Of Magnesia) 30 ml PO DAILY PRN PRN Reason: Constipation Xeloda 500 Mg Own (Med) 0 mg PO BID [facility] Last Admin: 12/26/17 21:28 Dose: 1,000 mg Ondansetron HCl (Zofran Odt) 8 mg PO Q8H PRN PRN Reason: Nausea Prochlorperazine Maleate (Compazine) 10 mg PO Q6H PRN PRN Reason: Nausea Senna/Docusate Sodium (Senna Plus) 2 tab PO BID [facility] Last Admin: 12/26/17 21:27 Dose: 2 tab Sodium Chloride (Saline Flush) 10 ml FLUSH ASDIRECTED PRN PRN Reason: Keep Vein Open Last Admin: 12/24/17 18:28 Dose: 10 ml Discontinued Medications Sodium Chloride (Normal Saline) 1,000 mls @ 150 mls/hr IV ASDIRECTED [facility] Last Admin: 12/24/17 18:28 Dose: 150 mls/hr Levofloxacin/Dextrose 500 mg/ (Premix) 100 mls @ 100 mls/hr IV ONETIME ONE Stop: 12/24/17 20:04 Last Admin: 12/24/17 19:16 Dose: 100 mls/hr Non-Formulary Medication (Sodium Phosphate,[place]-Dibasic [Enema Ready To Use]) 133 ml RECTAL DAILY PRN PRN Reason: Constipation - Exam General: Alert, Oriented HEENT: Pupils Equal Neck: Supple Lungs: Clear to Auscultation Cardiovascular: Regular Rate, Regular Rhythm GI/Abdominal Exam: Normal Bowel Sounds - Problem List Review Problem List Initiated/Reviewed/Updated: Yes - My Orders Last 24 Hours: My Active Orders 12/28/17 05:11 BASIC METABOLIC PANEL,BMP [CHEM] AM CBC WITH AUTO DIFF [HEME] AM 12/29/17 05:11 BASIC METABOLIC PANEL,BMP [CHEM] AM CBC WITH AUTO DIFF [HEME] AM - Plan Plan:: The patient is a 72-year-old male with a past medical history of metastatic colon cancer involving the liver, stage III a prostate cancer, DVT on anticoagulation, who presents with ambulatory dysfunction and failure to thrive. #Ambulatory dysfunction, failure to thrive PT/OT Will likely need penitentiary placement #Mild hyponatremia No headaches, no dizziness; asymptomatic hyponatremia Monitor BMP daily #Asymptomatic bacteriuria No fever, no elevated WBC count, no abdominal pain Urinalysis is positive for nitrites and leukocyte esterase; however the patient has a chronic Valdez catheter We'll hold off antibiotics for now. Urine culture - CONS #History of colon cancer Continue oral chemotherapy Follow-up with the oncology clinic Ensure regular bowel movements, bowel regimen #History of DVT Continue chronic anticoagulation; Lovenox #CODE STATUS Full code Please note that patient was admitted on a Wednesday evening and will need placement in a penitentiary; admission might be prolonged pending his disposition.
[2017-12-27] MEDS: Calcium Carbonate/Vitamin D3 1250 MG-200 Unit Tab PO SCH (09:22)
[2017-12-27] MEDS: Enoxaparin 100 MG/1 ML Syringe SUBCUT SCH (09:23)
[2017-12-27] MEDS: XELODA 500 MG PO SCH (09:27)
[2017-12-27] MEDS ORDERED: Sodium Chloride 0.9% 500 ML IV SCH (11:10)
--- NOTE | 2017-12-27 11:24 | PCM.SN ---
- Free Text/Narrative Note: Was called by nursing staff to evaluate patient after he became temporarily unresponsive, diaphoretic and lost balance. The patient was getting PT assistance to the bathroom for a bowel movement and after bowel movement, he suddenly became unresponsive for about a minute, diaphoretic and lost balance. He regained responsiveness shortly and was able to answer questions. Vitals signs during episode showed SBP in the 80s to 90s. When I arrived five minutes later to evaluate the patient, he was able to answer questions and was back to his baseline. BP was 96/64, AR was 82, sats 97 % on room air and normal body temperature. Heart sounds were normal S1/S2 and breath sounds were clear. Assessment and Plan Possible Vagal response to defecation, however will rule out other causes of transient hypotension Check CBC, BMP, ESR, CRP, Blood sugar, Blood culture/urine culture. Hold planned discharge today .
[2017-12-27 12:28] LABS: CHLORIDE,CL 100 mmol/L (101-111); SODIUM,NA 133 mmol/L (135-145)
[2017-12-28] MEDS: XELODA 500 MG PO SCH ×2 (00:49→08:47)
[2017-12-28] MEDS: Calcium Carbonate/Vitamin D3 1250 MG-200 Unit Tab PO SCH ×2 (00:49→08:46)
[2017-12-28 07:01] LABS: CHLORIDE,CL 101 mmol/L (101-111); SODIUM,NA 131 mmol/L (135-145)
[2017-12-28 07:29] VITALS: BP 113/81
[2017-12-28] MEDS: Enoxaparin 100 MG/1 ML Syringe SUBCUT SCH (08:47)
== END 2017-12-28 09:45 ==
LOC: DL.ED 17:26 → INTOOBSV 19:20 → DL.MS 19:20 → UNDOADMOB 19:20 → DL.MS 19:30
PROVIDERS: ADMIT Hospitalist; ATTEND Hospitalist
DX: R26.89 Other abnormalities of gait and mobility (principal); R62.7 Adult failure to thrive; C18.9 Malignant neoplasm of colon, unspecified; C61 Malignant neoplasm of prostate; C78.7 Secondary malignant neoplasm of liver and intrahepatic bile duct; R82.71 Bacteriuria; K21.9 Gastro-esophageal reflux disease without esophagitis; Z86.718 Personal history of other venous thrombosis and embolism; Z79.01 Long term (current) use of anticoagulants; Z79.899 Other long term (current) drug therapy; Z88.0 Allergy status to penicillin; Z88.1 Allergy status to other antibiotic agents
CPT/HCPCS: 36415; 51702; 80048; 80053; 81001; 82962; 83735; 85025; 85651; 86140; 87040; 87086; 96365; 96367; 97163; 97166; 99284; 99285; A9270; J1650; J1956; J7030; J7040; J7050

== ENCOUNTER 2018-08-21 23:47 | Emergency (ER) | payer MEDICARE, MEDICAID ==
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
[2018-08-22 00:45] LABS: CHLORIDE,CL 93 mmol/L (101-111); SODIUM,NA 131 mmol/L (135-145)
[2018-08-22] MEDS ORDERED: Sodium Chloride 0.9% 1,000 ML IV ONE (02:33)
[2018-08-22] MEDS ORDERED: Ciprofloxacin in D5W 400 MG in Premix Bag 1 BAG IV ONE ×2 (02:33)
[2018-08-22 02:56] VITALS: BP 91/59
== END 2018-08-22 03:30 ==
LOC: DL.ED 23:47
DX: A41.9 Sepsis, unspecified organism (principal); C18.9 Malignant neoplasm of colon, unspecified; C78.7 Secondary malignant neoplasm of liver and intrahepatic bile duct; N39.0 Urinary tract infection, site not specified; K21.9 Gastro-esophageal reflux disease without esophagitis; Z88.1 Allergy status to other antibiotic agents; Z88.0 Allergy status to penicillin; Z79.899 Other long term (current) drug therapy
CPT/HCPCS: 36415; 70450; 71250; 74176; 80053; 81001; 83605; 84484; 85025; 87086; 96365; 99285; J0744; J7030; 87088; 87186